=== PATIENT | male | born 1940 | race Caucasian/White ===

== ENCOUNTER 2018-01-20 12:11 | Emergency (ER) | payer MEDICARE, BC, SELFPAY ==
[2018-01-20 12:29] VITALS: BP 153/92; PULSE 66; RESP 16; TEMP 38; O2SAT 95
--- NOTE | 2018-01-20 12:57 | W.ED.GENAD ---
Discharge Plan Disposition Patient Disposition: HOME Condition: Good Discharge Details Chief Complaint: FlankPain Clinical Impression: Kidney stone Primary Care Provider: Sedrick Tracy ED Provider: Cesar Fallon Home Meds and New Rx's Prescriptions: New oxycodone 5 mg tablet 5 mg PO Q4H PRN (Reason: pain) Qty: 10 RF: 0 Continue fluticasone 16 GM spray,suspension 1 spray NS DAILY Qty: 1 RF: 3 Discharge Instructions Instructions: Kidney Stones (ED) Additional Instructions: follow up as scheduled with your urologist in 3 weeks take 1000mg tylenol every 6 hours for pain, if you need additional pain relief take 1 oxycodone if you have severe worsening of pain, persistent vomit or high fevers return to the emergency department Discharge Data Discharge Physician: Cesar Fallon Medical Decision Making 77 yo male with hx of bph and not on any meds, comes in with 2-3 days of right lower back pain and radiating to the abdomen pain and fevers since yesterday. On exam he has no abdominal tenderness or distention or gurading so doubt cholecystitis vs appendicitis. He did notice difficulty urinating prior to these symptoms so could have pyelonephritis. Will obtian CT to eval for kidney stones vs pyelo and obtain cbc and chemistry panel labs and urine unremarkable, he remains hd stable. His ct shows a stone in his bladder suggestive of recently passed stone and his pain is much better now. I spoke with Dr. Wilburn his urologist in [place] who recommended against starting abx given it is common per him to have temperatures with a kidney stone and his lab work without leukocytosis and normal UA other than blood unlikely infected stone. He advised he will f/u with him in 3 weeks and return precautions were given to the patient Imaging Data Radiologic Study: Attestation: I personally reviewed and interpreted this imaging study as follows: Imaging: CT Scan Radiologist's impression: stone in the bladder suggesting recently passed kindey stone Lab Data Lab results reviewed: Yes I reviewed the patient's lab results. HPI General Mode of arrival: wheelchair. Date/Time Provider Initiated Documentation: 01/20/18 12:46. Limitations to Documentation: no limitations. Information obtained by: patient. History of Present Illness 77 year old M presents to the emergency department with the chief complaint of right sided lower back pain, described as moderate, with intensity rated at 6. Quality is described as stabbing, and is localized to the back and abdomen. Patient reports no radiation. No relieving factors improve symptom(s), No exacerbating factors reported . Patient notes fever/chills. Related Data Home Medications Medication Instructions Recorded Confirmed fluticasone 1 spray NS DAILY #1 script 11/05/13 oxycodone 5 mg PO Q4H PRN #10 tab 01/20/18 Previous Rx's Medication Instructions Recorded oxycodone 5 mg PO Q4H PRN #10 tab 01/20/18 Allergies Allergy/AdvReac Type Severity Reaction Status Date / Time NSAIDS (Non-Steroidal Allergy Anaphylaxis Unverified 02/10/17 14:46 Anti-Inflamma General Stated Complaint: FlankPain DAMIR: 3 Review of Systems Review of Systems All systems reviewed & are unremarkable except as noted in HPI and below Constitutional Denies weakness ENT Denies change in voice Cardiovascular Denies chest pain and Denies dyspnea Respiratory Denies dyspnea Gastrointestinal Denies vomiting Integumentary/Breasts Denies rash Neurologic Denies weakness Psychiatric Denies depression [facility] Family History Mother Personal history of malignant neoplasm Father Personal history of malignant neoplasm Sister No problems noted. Brother No problems noted. Grandfather No problems noted. Grandfather No problems noted. Grandmother No problems noted. Grandmother No problems noted. Sister No problems noted. Sister No problems noted. Sister No problems noted. Social History Smoking/Tobacco Use Status: Never Exam Const General: no acute distress Orientation: alert HENMT Head: normal to inspection Ears: external ears normal General nose exam: external nose normal Mouth: moist mucous membranes Eyes General: appearance normal, both eyes and all related structures Neck Neck: normal visual inspection Resp Effort & Inspection: normal respiratory effort and able to speak in complete sentences Cardio Rate: regular rate Skin General skin exam: no rashes or lesions noted Neuro General: alert and oriented x3 Extrem General: normal to inspection Psych Mental Status: mental status grossly normal Course Vital Signs Temperature 38.0 C H 01/20/18 12:29 Pulse 66 01/20/18 12:29 Respiratory Rate 16 01/20/18 12:29 Blood Pressure 153/92 H 01/20/18 12:29 Pulse Oximetry 95 01/20/18 12:29 Temperature 38.0 C H 01/20/18 12:29 Temperature Source Temporal Artery Scan 01/20/18 12:29 Pulse 66 01/20/18 12:29 Respiratory Rate 16 01/20/18 12:29 Respiratory Effort Non-Labored 01/20/18 12:32 Blood Pressure 153/92 H 01/20/18 12:29 Pulse Oximetry 95 01/20/18 12:29 Oxygen Delivery Method Room Air 01/20/18 12:29 Oxygen Flow Rate 0 01/20/18 12:29 Pain Level 3 01/20/18 12:29
[2018-01-20] MEDS: Normal Saline 1,000 ML 1000 ML IV (13:00)
--- NOTE | 2018-01-20 13:01 | ED.GENADUL_ITS ---
Discharge Plan Disposition Patient Disposition: HOME Condition: Good Discharge Details Chief Complaint: FlankPain Clinical Impression: Kidney stone Primary Care Provider: Sedrick Tracy ED Provider: Cesar Fallon Home Meds and New Rx's Prescriptions: New oxycodone 5 mg tablet 5 mg PO Q4H PRN (Reason: pain) Qty: 10 RF: 0 Continue fluticasone 16 GM spray,suspension 1 spray NS DAILY Qty: 1 RF: 3 Discharge Instructions Instructions: Kidney Stones (ED) Additional Instructions: follow up as scheduled with your urologist in 3 weeks take 1000mg tylenol every 6 hours for pain, if you need additional pain relief take 1 oxycodone if you have severe worsening of pain, persistent vomit or high fevers return to the emergency department Discharge Data Discharge Physician: Cesar Fallon Medical Decision Making 77 yo male with hx of bph and not on any meds, comes in with 2-3 days of right lower back pain and radiating to the abdomen pain and fevers since yesterday. On exam he has no abdominal tenderness or distention or gurading so doubt cholecystitis vs appendicitis. He did notice difficulty urinating prior to these symptoms so could have pyelonephritis. Will obtian CT to eval for kidney stones vs pyelo and obtain cbc and chemistry panel labs and urine unremarkable, he remains hd stable. His ct shows a stone in his bladder suggestive of recently passed stone and his pain is much better now. I spoke with Dr. Wilburn his urologist in [place] who recommended against starting abx given it is common per him to have temperatures with a kidney stone and his lab work without leukocytosis and normal UA other than blood unlikely infected stone. He advised he will f/u with him in 3 weeks and return precautions were given to the patient Imaging Data Radiologic Study: Attestation: I personally reviewed and interpreted this imaging study as follows: Imaging: CT Scan Radiologist's impression: stone in the bladder suggesting recently passed kindey stone Lab Data Lab results reviewed: Yes I reviewed the patient's lab results. HPI General Mode of arrival: wheelchair . Date/Time Provider Initiated Documentation: 01/20/18 12:46 . Limitations to Documentation: no limitations . Information obtained by: patient . History of Present Illness 77 year old M presents to the emergency department with the chief complaint of right sided lower back pain, described as moderate, with intensity rated at 6. Quality is described as stabbing, and is localized to the back and abdomen. Patient reports no radiation. No relieving factors improve symptom( s), No exacerbating factors reported . Patient notes fever/chills. Related Data Home Medications Medication Instructions Recorded Confirmed fluticasone 1 spray NS DAILY #1 script 11/05/13 oxycodone 5 mg PO Q4H PRN #10 tab 01/20/18 Previous Rx's Medication Instructions Recorded oxycodone 5 mg PO Q4H PRN #10 tab 01/20/18 Allergies Allergy/AdvReac Type Severity Reaction Status Date / Time NSAIDS (Non-Steroidal Allergy Anaphylaxis Unverified 02/10/17 14:46 Anti-Inflamma General Stated Complaint: FlankPain DAMIR: 3 Review of Systems Review of Systems All systems reviewed & are unremarkable except as noted in HPI and below Constitutional Denies weakness ENT Denies change in voice Cardiovascular Denies chest pain and Denies dyspnea Respiratory Denies dyspnea Gastrointestinal Denies vomiting Integumentary/Breasts Denies rash Neurologic Denies weakness Psychiatric Denies depression [facility] Family History Mother Personal history of malignant neoplasm Father Personal history of malignant neoplasm Sister No problems noted. Brother No problems noted. Grandfather No problems noted. Grandfather No problems noted. Grandmother No problems noted. Grandmother No problems noted. Sister No problems noted. Sister No problems noted. Sister No problems noted. Social History Smoking/Tobacco Use Status: Never Exam Const General: no acute distress Orientation: alert HENMT Head: normal to inspection Ears: external ears normal General nose exam: external nose normal Mouth: moist mucous membranes Eyes General: appearance normal, both eyes and all related structures Neck Neck: normal visual inspection Resp Effort & Inspection: normal respiratory effort and able to speak in complete sentences Cardio Rate: regular rate Skin General skin exam: no rashes or lesions noted Neuro General: alert and oriented x3 Extrem General: normal to inspection Psych Mental Status: mental status grossly normal Course Vital Signs Temperature 38.0 C H 01/20/18 12:29 Pulse 66 01/20/18 12:29 Respiratory Rate 16 01/20/18 12:29 Blood Pressure 153/92 H 01/20/18 12:29 Pulse Oximetry 95 01/20/18 12:29 Temperature 38.0 C H 01/20/18 12:29 Temperature Source Temporal Artery Scan 01/20/18 12:29 Pulse 66 01/20/18 12:29 Respiratory Rate 16 01/20/18 12:29 Respiratory Effort Non-Labored 01/20/18 12:32 Blood Pressure 153/92 H 01/20/18 12:29 Pulse Oximetry 95 01/20/18 12:29 Oxygen Delivery Method Room Air 01/20/18 12:29 Oxygen Flow Rate 0 01/20/18 12:29 Pain Level 3 01/20/18 12:29
[2018-01-20 13:06] LABS: Abs Immature Grans 0.01 k/cumm (0.0-0.09); Absolute Basophil Count 0.01 k/cumm (0.0-0.2); Absolute Lymphocyte Count 0.75 k/cumm (1.2-3.4); Absolute Monocyte Count 1.19 k/cumm (0.11-0.7); Absolute Neutrophil Count 8.31 k/cumm (1.2-6.7); Basophils % 0.1; Immature Grans % 0.1; Lymphocytes % 7.3; Mean Corp. HGB Concentration 34.8 g/dL (32.0-36.0); Mean Corpuscular Hemoglobin 32.3 pg (27.0-33.0); Mean Corpuscular Volume 92.7 fL (80-95); Mean Platelet Volume 10.4 fL (8.0-11.0); Monocytes % 11.6; Neutrophils % 80.9; Platelet Count 148 x1000/uL (130-400); RBC 4.96 m/cumm (4.50-6.00); RBC Distribution Width 12.1 % (11.8-14.1); White Blood Cell Count 10.27 k/cumm (4.4-10.8)
[2018-01-20] MEDS: fentaNYL 100 MCG/2 ML VIAL 50 MCG IVP (13:16)
[2018-01-20 13:19] LABS: ALT 20 U/L (12-78); AST 15 U/L (15-37); Albumin 3.8 g/dL (3.4-5.0); Alkaline Phosphatase 86 U/L (46-116); Anion Gap 7.1 mmol/L (3-11); BUN 14 mg/dL (7-18); Bilirubin, Total 1.7 mg/dL (0.2-1.0); CO2 27.9 mmol/L (21.0-32.0); CREATININE 1.05 mg/dL (0.70-1.30); Calcium 8.2 mg/dL (8.5-10.1); Chloride 96 mmol/L (98-107); Glucose 107 mg/dL (70-100); Potassium 3.7 mmol/L (3.5-5.1); Sodium 131 mmol/L (136-145); Total Protein 7.8 g/dL (6.4-8.2)
[2018-01-20 13:21] LABS: Cholesterol 177 mg/dL (50-200); HDL Cholesterol 62 mg/dL (40-60); LDL CHOLESTEROL 117 mg/dL (<100); Triglyceride 73 mg/dL (30-150)
[2018-01-20 13:24] LABS: Bilirubin Small (Negative); Blood Trace-intact (Negative); Clarity Clear; Glucose Negative (Negative); Ketones 80 mg/dL (Negative); Leukocyte Esterase Negative (Negative); Nitrite Negative (Negative); Specific Gravity 1.025 (1.005-1.025); Urobilinogen 0.2 EU/dL (Up TO 0.2)
[2018-01-20 13:40] LABS: Bacteria Negative HPF (Negative); C & S Indicated? C&S Done As Ordered; Casts Negative LPF (Negative); Crystals Negative HPF (Negative); Epithelial Cells Rare HPF (Negative); Mucus Heavy (Negative); RBC 0-2 (0-2); WBC Negative HPF (0-5)
--- NOTE | 2018-01-20 13:40 | DI.CT_ITS ---
SYMPTOMS/DIAGNOSIS: FEVERS AND RIGHT FLANK PAIN ABDOMINAL AND PELVIC CT: CT examination of the abdomen and pelvis was performed with a bolus infusion of 100 cc of Omnipaque 350. Images obtained through the lung bases are unremarkable. The liver and spleen appear normal. The gallbladder is distended. This is a nonspecific finding and otherwise gallbladder and bile ducts are unremarkable in appearance, as is the pancreas. Spleen appears normal. Abdominal aorta is of normal diameter and no major vascular abnormality is seen. No significant abdominal wall hernia is seen. No abdominal or pelvic adenopathy. Appendix appears normal. No evidence of diverticulitis or bowel obstruction. Adrenals appear normal bilaterally. Left kidney is unremarkable in appearance. Right kidney contains multiple stones and cysts. There is right hydronephrosis and hydroureter to the level of the distal ureter a few centimeters about the ureterovesical junction, where there is an obstructing 3 mm in diameter stone. Additionally, a couple of small stones appear to be present in the urinary bladder, which is thick walled. Prostate is enlarged. CONCLUSION: 1. A 3 mm obstructing stone in right ureter a few centimeters above the ureterovesical junction. This was not described by the [facility] reader and I have discussed this finding with Dr. Fallon in the ED. 2. Probable recently passed stones in the urinary bladder. 3. Urinary bladder wall thickening, inflammation versus chronic bladder outlet obstruction secondary to prostatic enlargement.
[2018-01-20] MEDS: Omnipaque 350 MG/ML 100 ML BTL IJ (14:02)
[2018-01-20 14:05] VITALS: BP 156/90; PULSE 72; RESP 17; O2SAT 96
--- NOTE | 2018-01-20 14:23 | DI.VRAD_ITS ---
EXAM: CT Abdomen and Pelvis With Intravenous Contrast EXAM DATE/TIME: 01/20/2018 12:56 PM CLINICAL HISTORY: 77 years old, male; Signs and symptoms; Fever and other: Right flank pain TECHNIQUE: Axial computed tomography images of the abdomen and pelvis with intravenous contrast. Coronal and sagittal reformatted images were created and reviewed. CONTRAST: 100 ml of Omnipaque 350 administered intravenously. COMPARISON: No relevant prior studies available. FINDINGS: Lower thorax: Mild right lower lobe atelectasis. ABDOMEN: Liver: Normal. No mass. Gallbladder and bile ducts: Normal. No calcified stones. No ductal dilation. Pancreas: Normal. No ductal dilation. Spleen: Normal. No splenomegaly. Adrenals: Normal. No mass. Kidneys and ureters: There is minimal right perinephric edema. There is moderate right renal atrophy and scarring. There are renal cysts, some atypical. There are nonobstructing right renal calculi. There is mild to moderate right hydronephrosis. The distal right ureter is decompressed. Stomach and bowel: Diverticulosis without acute diverticulitis. Moderate fecal retention pattern. Appendix: No evidence of appendicitis. PELVIS: Bladder: The bladder is not well-distended. There is a 2 mm small bladder calculus series 5 image 76. Reproductive: The prostate is enlarged measuring 5 cm in diameter. ABDOMEN and PELVIS: Intraperitoneal space: Normal. No free air. No significant fluid collection. Bones/joints: Mild lumbar spondylosis. Soft tissues: Unremarkable. Vasculature: Mild atherosclerotic change present in the vasculature. Lymph nodes: Normal. No enlarged lymph nodes. IMPRESSION: Findings consistent with recently passed right renal ureteral calculus currently present in the bladder. COMMENT: Preliminary interpretation is based on receipt of 314 image(s). A final report will be issued subsequently. Dictated and Authenticated by: Felecia Kowalski MD. Ordering:FABIAN BLUM MD
--- NOTE | 2018-01-21 13:33 | W.ED.FU ---
called the pt back and spoke to his Marie. Dr. Harmon states the pt has a stone in the ureter as well which vrad missed. The patient has not had any fevers per report on the phone. I advised again if he has fevers, uncontrolled pain and persistent vomit to return to the emergency department. They were advised of the stone that is in the ureter as well
== END 2018-01-20 14:48 | disposition home or self-care (01) ==
PROVIDERS: Emergency Provider Emergency Medicine; PCP Family Medicine
DX: N20.0 Calculus of kidney (principal)
CPT/HCPCS: 80053; 80061; 83721; 96361; 96374; 99285; 74177; 81003; 81015; 85025; 87086; 99284; J3010; J3490

== ENCOUNTER 2018-02-12 10:29 | Outpatient (CLI) | payer MEDICARE, BC, SELFPAY ==
[2018-02-13 09:38] LABS: PSA, Screening 2.8 ng/ml (0-6.5)
== END 2018-02-12 10:49 ==
PROVIDERS: PCP Family Medicine; Visit Provider Urology
DX: N20.0 Calculus of kidney (principal); Z12.5 Encounter for screening for malignant neoplasm of prostate
CPT/HCPCS: 36415; 84153

== ENCOUNTER 2018-02-12 14:38 | Outpatient (REF) | payer MEDICARE, BC, SELFPAY ==
[2018-02-12 15:30] LABS: Sodium, Urine 42 mmol/L
[2018-02-12 15:40] LABS: CLEAVED CELLS 111 mmol/24h (40-220); Total Volume 2650 ml
[2018-02-12 16:01] LABS: Creatinine,24hr Ur 1.45 g/24hr (0.95-2.49); Total Volume 2650 ml
[2018-02-13 09:07] LABS: Uric Acid Urine 19.9 mg/dl; Uric Acid Urine 24hr 527 mg/24h (250-750)
[2018-02-13 09:09] LABS: Calcium Urine 12.3 mg/dl; Calcium Urine 24 hr 326 mg/24hr (100-300); Magnesium 24hr Urine 174.9 mg/24h (73.0-122.0); Magnesium Random Urine 6.6 mg/dl; Phosphorus Urine 39.2 mg/dl
[2018-02-13 16:09] LABS: Citrate Excretion, 24hr, U 917 mg/24 h; Urine Volume 2650 mL
[2018-02-14 02:49] LABS: Oxalate Conc (mmol/L) 0.15 mmol/L; Oxalate Concentration 13.2 mg/L; Oxalate, U 0.9 mg/24 h (9.7 - 40.5); Oxalate, U <0.01 mmol/24 h (0.11-0.46); Urine Volume 24 mL
== END 2018-02-12 14:58 ==
LOC: LBN 14:38
PROVIDERS: PCP Family Medicine; Visit Provider Urology
DX: N20.0 Calculus of kidney (principal)
CPT/HCPCS: 82507; 83735; 81050; 82340; 82570; 83945; 84105; 84300; 84560

== ENCOUNTER 2018-03-05 16:41 | Outpatient (REF) | payer MEDICARE, BC, SELFPAY ==
[2018-03-05 19:52] LABS: Sodium, Urine 56 mmol/L
[2018-03-05 19:53] LABS: Creatinine,Urine 44.51 mg/dL
[2018-03-05 19:57] LABS: CLEAVED CELLS 151 mmol/24h (40-220); Total Volume 2700 ml
[2018-03-05 19:58] LABS: Total Volume 2700 ml
[2018-03-06 08:04] LABS: Source: Other
[2018-03-07 09:14] LABS: Calcium Urine 6.1 mg/dl; Calcium Urine 24 hr 165 mg/24hr (100-300); Magnesium 24hr Urine 140.4 mg/24h (73.0-122.0); Magnesium Random Urine 5.2 mg/dl; Phosphorus Urine 26.3 mg/dl; Phosphorus Urine 24hr 0.7 g/24h (0.4-1.3); Uric Acid Urine 24hr 540 mg/24h (250-750)
[2018-03-07 16:31] LABS: Oxalate Conc (mmol/L) 0.16 mmol/L; Oxalate Concentration 14.1 mg/L; Oxalate, U 0.43 mmol/24 h (0.11-0.46); Oxalate, U 37.8 mg/24 h (9.7 - 40.5); Urine Volume 2700 mL
[2018-03-07 19:05] LABS: Citrate Excretion, 24hr, U 918 mg/24 h; Urine Volume 2700 mL
== END 2018-03-05 17:01 ==
LOC: LBN 16:41
PROVIDERS: PCP Family Medicine; Visit Provider Urology
DX: N20.1 Calculus of ureter (principal)
CPT/HCPCS: 82507; 83735; 81050; 82340; 82570; 83945; 83986; 84105; 84300; 84560

== ENCOUNTER 2018-03-16 16:27 | Outpatient (REF) | payer MEDICARE, BC, SELFPAY ==
[2018-03-21 15:52] LABS: Source: Kidney
== END 2018-03-16 16:47 ==
LOC: LBN 16:27
PROVIDERS: PCP Family Medicine; Visit Provider Urology
DX: N20.0 Calculus of kidney (principal)
CPT/HCPCS: 82360

== ENCOUNTER 2019-10-08 07:46 | Outpatient (CLI) | payer MEDICARE, BC, SELFPAY ==
[2019-10-11 07:23] LABS: SARS-CoV-2 RNA Undetected (Undetected); SARS-CoV-2 Specimen Source Nasopharynx
== END 2019-10-08 08:06 ==
PROVIDERS: PCP Family Medicine; Visit Provider Family Medicine
DX: Z03.818 Encounter for observation for suspected exposure to other biological agents ruled out (principal)
CPT/HCPCS: U0003

== ENCOUNTER 2021-08-09 02:18 | Outpatient (CLI) | payer MEDICARE, BC, SELFPAY ==
[2021-08-09 18:20] LABS: PSA, Screening 2.7 ng/mL (<=6.5)
== END 2021-08-09 02:19 | disposition home or self-care (01) ==
LOC: LBO 02:18
PROVIDERS: Urology; PCP Family Medicine; Visit Provider Family Medicine
DX: N40.1 Benign prostatic hyperplasia with lower urinary tract symptoms (principal); Z12.5 Encounter for screening for malignant neoplasm of prostate
CPT/HCPCS: 36415; 84153